=== PATIENT | male | born 1980 | race Hispanic/Latino ===

== ENCOUNTER 2019-02-24 05:05 | Emergency (ER) | payer BC ==
[~2019-02-24] VITALS: Ht 185.4 cm; Wt 112.9 kg
[2019-02-24] MEDS ORDERED: ONDANSETRON HCL INJ 2MG/ML 2ML 2 MG/ML VIAL IV STA (05:08)
[2019-02-24] MEDS ORDERED: PANTOPRAZOLE 40 MG 10ML VIAL IV STA (05:08)
[2019-02-24] MEDS ORDERED: MORPHINE SULFATE 2 MG/ML SYR 1ML IV STA (05:08)
[2019-02-24] MEDS ORDERED: SODIUM CHLORIDE 0.9% 1000ML 1,000 ML IV ONE (05:15)
[2019-02-24] MEDS ORDERED: DICYCLOMINE HCL 20 MG/2 ML VIAL IM ONE (05:15)
[2019-02-24] MEDS ORDERED: SODIUM CHLORIDE 0.9% 1000ML 1,000 ML ONE (05:17)
[2019-02-24 05:28] LABS: BASOPHILS % 0.3 % (0.0-1.0); EOSINOPHILS % 0.1 % (0.0-6.0); HEMATOCRIT 47.1 % (38.2-49.6); HEMOGLOBIN 15.9 g/dL (14.0-18.0); LYMPHOCYTES # (AUTO) 2.3 (1.0-3.2); LYMPHOCYTES % 16.1 % (18.0-39.1); MEAN CORPUSCULAR HEMOGLOBIN 27.6 pg (28-32); MEAN CORPUSCULAR HGB CONC 33.8 g/dL (31-35); MEAN CORPUSCULAR VOLUME 81.8 fL (81-99); MONOCYTES # (AUTO) 0.6 (0.2-0.8); MONOCYTES % 4.2 % (4.4-11.3); NEUTROPHILS % 78.9 % (38.7-80.0); PLATELET COUNT 215 x10e3/uL (140-360); RED BLOOD COUNT 5.76 x10e6/uL (4.3-5.7); RED CELL DISTRIBUTION WIDTH 12.4 % (11.7-14.4)
[2019-02-24] MEDS ORDERED: MORPHINE SULFATE INJ 4 MG/ML INJ 1ML ONE (05:32)
[2019-02-24 05:48] LABS: ALANINE AMINOTRANSFERASE 22 IU/L (0-55); ALBUMIN 4.5 g/dL (3.5-5.0); ALBUMIN/GLOBULIN RATIO 1.5 (0.8-2.0); ALKALINE PHOSPHATASE 74 IU/L (40-150); BLOOD UREA NITROGEN 10 mg/dL (7-26); BUN/CREATININE RATIO 8 (6-25); CALCIUM 9.9 mg/dL (8.4-10.2); CARBON DIOXIDE 24 mmol/L (22-29); CHLORIDE 102 mmol/L (98-107); CREATININE, SERUM 1.19 mg/dL (0.72-1.25); EST GLOMERULAR FILTRATION RATE > 60 ML/MIN (60-); GLUCOSE 136 mg/dL (74-118); SODIUM 136 mmol/L (136-145)
[2019-02-24 06:40] LABS: AMYLASE 50 U/L (25-125); LIPASE 13 U/L (8-78)
[2019-02-24 06:57] VITALS: BP 124/72
== END 2019-02-24 07:14 | disposition home or self-care (01) ==
LOC: ER 05:05
DX: R10.13 Epigastric pain (principal); R11.2 Nausea with vomiting, unspecified; K29.00 Acute gastritis without bleeding
CPT/HCPCS: 36415; 80053; 82150; 83690; 85025; 99283; C9113; J0500; J2270; J2405; J7030